=== PATIENT | female | born 1940 | race African-American/Black ===

== ENCOUNTER 2017-04-13 16:59 | Emergency (ER) | payer OTHER ==
[2017-04-13 18:07] LABS: BASOPHILS 0.2 %; BASOPHILS ABSOLUTE 0.02 10/3/uL (0.0-0.16); EOSINOPHILS 9.2 %; EOSINOPHILS ABSOLUTE 0.83 10/3/uL (0.0-0.53); ER CBC TAT 0 Hrs 07 Mins; HEMATOCRIT 39.1 % (36.0-48.0); HEMOGLOBIN 12.9 g/dL (12.0-16.0); IMMATURE GRANULOCYTES 0.2 %; IMMATURE GRANULOCYTES ABSOLUTE 0.02 10/3/uL (0.0-0.11); LYMPHOCYTES ABSOLUTE 4.15 10/3/uL (0.67-4.30); MEAN CORPUSCULAR HEMOGLOB 32.1 pg (26.0-34.0); MEAN CORPUSCULAR VOLUME 97.3 fL (80-100); MEAN PLATELET VOLUME 9.5 fL (9.2-13.0); MONOCYTES 7.9 %; MONOCYTES ABSOLUTE 0.71 10/3/uL (0.21-1.20); NEUTROPHILS 36.5 %; PLATELET COUNT 261 10/3/uL (150-400); RBC DISTRIBUTION WIDTH 14.4 % (12.0-16.0); RED CELL COUNT 4.02 10/6/uL (4.0-5.6)
[2017-04-13 18:08] LABS: MANUAL DIFF NO %
[2017-04-13 18:13] LABS: INTERNATIONAL NORMAL RATI 1.4 UNITS (-); PARTIAL THROMBO TIME 36.8 SEC (22.5-37.2); PROTIME (NOT ORD) 17.1 SEC (12.0-14.5)
[2017-04-13 18:30] LABS: BUN (BLOOD UREA NITROGEN) 14 MG/DL (6-23); CALCIUM, SERUM 9.9 MG/DL (8.5-10.4); CHEST PAIN PROFILE TAT 0 Hrs 30 Mins; CHLORIDE, SERUM 109 MMOL/L (96-112); CO2 (CARBON DIOXIDE) 27 MMOL/L (24-34); CREATININE 1.17 MG/DL (0.55-1.02); GFR AFRICAN AMERICAN 53 ML/MIN (>=60); GFR NON AFRICAN AMERICAN 46 ML/MIN (>=60); POTASSIUM, SERUM 3.9 MMOL/L (3.5-5.3); SODIUM, SERUM 142 MMOL/L (135-148); TROPONIN I <0.02 NG/ML (<0.05)
[2017-04-13 18:32] LABS: GLUCOSE, SERUM 84 MG/DL (60-99)
[2017-04-13] MEDS ORDERED: MICROZIDE PO (20:21)
[2017-04-13] MEDS ORDERED: BETAPACE80 PO (20:21)
[2017-04-13] MEDS ORDERED: LISINOPRIL40 MG PO (20:21)
[2017-04-13] MEDS ORDERED: ELIQUIS 5 MG TAB5 MG PO (20:21)
== END 2017-04-13 23:23 | disposition home or self-care (01) ==
LOC: ER 16:59
PROVIDERS: Emergency Medicine
DX: R00.0 Tachycardia, unspecified (principal); I10 Essential (primary) hypertension; Z95.5 Presence of coronary angioplasty implant and graft; Z79.899 Other long term (current) drug therapy
CPT/HCPCS: 71010; 80048; 83735; 83880; 84484; 85025; 85610; 85730; 93005; 93225; 99285; A9270-GY